=== PATIENT | female | born 1975 | race Caucasian/White ===

== ENCOUNTER 2021-07-10 15:33 | Emergency (ER) | payer BC, SELFPAY ==
[2021-07-10 15:53] VITALS: BP 141/107; PULSE 70; RESP 16; TEMP 37; O2SAT 99
--- NOTE | 2021-07-10 16:38 | ED.URI ---
HPI - URI/Sore Throat General Chief Complaint: Upper Respiratory Infection Stated Complaint: sinus infection Time Seen by Provider: 07/10/21 16:38 Source: patient Mode of arrival: ambulatory Limitations: no limitations History of Present Illness HPI Narrative: Mora Porter 36-year-old female with no PMH who comes to [facility] with complaints of sinus congestion and fever for the last 3 days. She has been taking Claritin D and using Mucinex with no relief Related Data Allergies Allergy/AdvReac Type Severity Reaction Status Date / Time morphine Allergy Unknown N & V Verified 04/02/14 13:57 mushrooms-swelling Allergy Unknown Uncoded 05/09/05 07:23 Review of Systems Review of Systems: CONSTITUTIONAL: Denies fever, chills, sweats. EYES: Denies visual changes, redness, discharge. ENT: Has rhinorrhea, has congestion, sore throat, otalgia. CARDIOVASCULAR: Denies chest pain, palpitations, edema. RESPIRATORY: Denies dyspnea, wheezing, has cough GASTROINTESTINAL: Denies abdominal pain, nausea, vomiting, diarrhea. GENITOURINARY: Denies dysuria, hematuria, abnormal discharge SKIN: Denies rash or itching. NEUROLOGIC: Denies numbness, or focal weakness. PSYCHIATRIC: Denies anxiety or depression. [facility] Past Medical History Medical History No acute medical problems Family History Family History (Updated 07/10/21 @ 16:39 by Val Huynh CNP) Other Diabetes mellitus Heart disease Hypertension Social History Social History (Updated 07/10/21 @ 16:40 by Val Huynh CNP) Smoking packs per day: 0.1 Smoking cigarettes per day: 2.0 Smoking status: Current every day smoker Alcohol intake: never Comments At time of signature, I agree with nursing past medical, surgical, social and family history. There is no relevant family history pertinent to the presenting complaint. Patient's blood pressure is elevated due to her current condition. Exam Narrative: GENERAL: This is a well-nourished, well-developed patient, in mild distress. HEAD: normocephalic, atraumatic. EYES: Sclera clear/white. Vision is grossly intact. EARS: External ears normal, auditory canals erythema and without drainage, TMs normal without perforation. Hearing grossly intact. NOSE: External nose normal with nasal discharge, nares with redness, has rhinorrhea. Tender across maxillary sinuses THROAT: Mucous membranes moist, posterior pharynx erythema NECK: Neck supple, non-tender CARDIOVASCULAR: Regular rate and rhythm without murmurs, gallops, or rubs. RESPIRATORY: Clear to auscultation. Breath sounds equal bilaterally. No wheezes, rales, or rhonchi. GASTROINTESTINAL: Abdomen soft, non-tender, SKIN: warm, intact with no suspicious lesions or rash, good texture and turgor. NEURO: awake, alert, and oriented to person, place and time. There were no obvious focal neurologic abnormalities. Steady gait EXTREMITIES: Normal range of motion. BACK: Nontender without deformity Course Course Emergency Course: [facility] complaining of fever and sinus symptoms for the last 3 days has gotten continually worse the last 3 days After discussion with patient about history and fever control started on Augmentin, prednisone, Tessalon Perles Vital Signs Vital signs: Vital Signs Temperature 98.6 F 07/10/21 15:53 Pulse Rate 70 07/10/21 15:53 Respiratory Rate 16 07/10/21 15:53 Blood Pressure 141/107 H 07/10/21 15:53 Pulse Oximetry 99 07/10/21 15:53 Temperature 98.6 F 07/10/21 15:53 Pulse Rate 70 07/10/21 15:53 Respiratory Rate 16 07/10/21 15:53 Blood Pressure 141/107 H 07/10/21 15:53 Pulse Oximetry 99 07/10/21 15:53 MDM - URI/Sore Throat Differential Diagnosis Differential diagnosis: Likely upper respiratory infection, otitis media, sinusitis, viral infection, bronchitis, pharyngitis and other Critical Care Time Critical Care Time Critical Car
== END 2021-07-10 16:50 | disposition home or self-care (01) ==
PROVIDERS: Emergency Provider Nurse Practitioner
DX: J01.10 Acute frontal sinusitis, unspecified (principal); F17.210 Nicotine dependence, cigarettes, uncomplicated
CPT/HCPCS: 99213; G0463

== ENCOUNTER 2021-12-21 12:49 | Emergency (ER) | payer BC, SELFPAY ==
[2021-12-21 12:57] VITALS: BP 128/76; PULSE 88; RESP 16; TEMP 37.1; O2SAT 98
[2021-12-21 13:00] VITALS: BP 128/76; PULSE 88; RESP 16; TEMP 37.1; O2SAT 98
--- NOTE | 2021-12-21 13:09 | ED.SKABFB ---
HPI - Skin/Abscess/Foreign Bdy General Chief complaint: Skin/Abscess/Foreign Body Stated complaint: Rash Time Seen by Provider: 12/21/21 13:09 Source: patient, RN notes reviewed and old records reviewed Mode of arrival: ambulatory Limitations: no limitations History of Present Illness HPI narrative: 46-year-old female presents to the [facility] with a rash under bilateral breasts for the last week to 10 days. Has tried foot cream, A&E ointment, diaper rash cream with no relief. Describes it as itching and burning. No open wounds. No cellulitic changes. Denies fevers. MD complaint: rash Related Data Allergies Allergy/AdvReac Type Severity Reaction Status Date / Time morphine Allergy Unknown N & V Verified 12/21/21 12:58 mushrooms-swelling Allergy Unknown Swelling Uncoded 12/21/21 12:58 Review of Systems Review of Systems: All systems reviewed & are unremarkable except as noted in HPI and below Constitutional: Constitutional: Reports no additional constitutional complaints, Denies chills, Denies fever(s), Denies headache(s) and Denies weakness Eyes: Eyes: Reports no additional eye complaints and Denies change in vision ENT: Reports system reviewed and no additional complaints, except as documented, Denies dysphagia, Denies dizziness, Denies headache(s), Denies nasal congestion and Denies sore throat Cardiovascular: Cardiovascular: Reports no additional cardiovascular complaints, Denies chest pain, Denies syncope and Denies dyspnea Respiratory: Respiratory: Reports no additional respiratory complaints, Denies chest congestion, Denies cough, Denies dyspnea and Denies wheezing Gastrointestinal: Gastrointestinal: Denies dysphagia Musculoskeletal: Musculoskeletal: Reports no additional musculoskeletal complaints and Denies numbness Integumentary/Breasts: Skin/Breast: Reports as per HPI and Reports rash (Under bilateral breasts) Neurologic: Reports system reviewed and no additional complaints, except as documented, Denies dizziness, Denies syncope, Denies headache(s), Denies focal weakness, Denies numbness and Denies weakness Psychiatric: Psychiatric: Reports no additional psychiatric complaints Allergic/Immunologic: Allergic/Immunologic: Reports no additional allergic/immunologic complaints and Denies wheezing PMFSH Past Medical History Medical History No acute medical problems Family History Family History Other Diabetes mellitus Heart disease Hypertension Social History Social History Smoking packs per day: 0.1 Smoking cigarettes per day: 2.0 Smoking status: Current every day smoker Alcohol intake: never Comments At the time of my signature, I reviewed and agree with the nursing past medical, surgical, social, and family history. There is no relevant family history pertinent to the patient complaint. Exam Const: General: healthy appearing, no acute distress and alert Nutritional Appearance: well nourished and obese Orientation/consciousness: patient oriented x3 Limitations: no limitations HENMT: Head: normal to inspection Ears: external ears normal Eyes: Pupils: Equal, round and reactive pupils present Neck: Neck: normal visual inspection, no lymphadenopathy and no meningeal signs Chest: Chest palpation & inspection: normal inspection of the chest Resp: Effort & Inspection: normal respiratory effort Auscultation: clear to auscultation bilaterally Cardio: Rate: regular rate Rhythm: regular rhythm Back/Spine/Pelvis: Back: no CVA tenderness Skin: General skin exam: normal color Rashes: rashes noted (Under bilateral, red, excoriated) Neuro: General: patient oriented x3, moves all extremities, no meningeal signs and no focal motor deficits Cranial nerves: Yes Equal, round and reactive pupils present Speech: normal speech Gait ex
== END 2021-12-21 13:16 | disposition home or self-care (01) ==
PROVIDERS: Emergency Provider Nurse Practitioner
DX: B37.2 Candidiasis of skin and nail (principal); F17.210 Nicotine dependence, cigarettes, uncomplicated
CPT/HCPCS: 99213; G0463

== ENCOUNTER 2022-11-06 16:26 | Emergency (ER) | payer BC, SELFPAY ==
[2022-11-06 16:40] VITALS: BP 144/84; PULSE 87; RESP 14; TEMP 36.4; O2SAT 99
--- NOTE | 2022-11-06 17:08 | ED.URI ---
HPI - URI/Sore Throat General Chief Complaint: Upper Respiratory Infection Stated Complaint: Sinus Time Seen by Provider: 11/06/22 17:08 Source: patient and RN notes reviewed Mode of arrival: ambulatory Limitations: no limitations History of Present Illness HPI Narrative: 47 y/o female presented for c/o sinus headache, cough, sore throat, for 4 days, endorses fever 102 today. Taking sudafed and tylenol for symptoms. 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 Denies shortness of breath, wheezing, nausea, vomiting, diarrhea. Currently quitting smoking, down to 3 cigarettes per day. MD elicited complaint: cough Related Data Allergies Allergy/AdvReac Type Severity Reaction Status Date / Time morphine Allergy Unknown N & V Verified 11/06/22 16:35 mushrooms-swelling Allergy Unknown Swelling Uncoded 11/06/22 16:35 Review of Systems Review of Systems: CONSTITUTIONAL: Endorses malaise, chills, sweats, fever EYES: Denies visual changes, redness, or discharge ENT: Reports rhinorrhea, congestion, sinus pain, otalgia, sore throat CARDIOVASCULAR: Denies chest pain, palpitations, edema RESPIRATORY: Reports cough, post nasal drainage. Denies dyspnea GASTROINTESTINAL: Denies abdominal pain, nausea, vomiting, diarrhea SKIN: Denies rash or itching MUSCULOSKELETAL: Denies myalgia NEUROLOGIC: Endorses headache PMFSH Past Medical History Medical History (Updated 11/06/22 @ 17:16 by Elida Le APRN) No acute medical problems No pertinent past medical history Family History Family History Other Diabetes mellitus Heart disease Hypertension Social History Social History Smoking packs per day: 0.1 Smoking cigarettes per day: 2.0 Smoking status: Current every day smoker Alcohol intake: never Exam Narrative: GENERAL: Ill-appearing, nontoxic EYES: PERRLA, conjunctivae clear ENT: Mucous membranes moist. TMs pearly alston with dull light reflex bilaterally; no tragal tenderness. Oropharynx erythematous without lesions or exudate, no drooling, no hoarseness, no trismus, uvula midline. NECK: Supple. No lymphadenopathy CHEST: Clear to auscultation, breath sounds equal. No wheezing, rhonchi, rales, or stridor. No respiratory distress, speaks in full sentences. HEART: Regular rate and rhythm. No murmur heard. SKIN: Warm, dry, no rash. NEURO: Alert and oriented x3. PSYCH: Normal mood and affect Course Course Emergency Course: Patient is aware of diagnosis, understands and agrees to treatment plan. Anticipatory guidance given. Patient agrees to follow-up as directed and is aware of reasons to seek care at the emergency department. Portions of this record may have been created with voice recognition software Level of Care: Express Care Visit Vital Signs Vital signs: reviewed MDM - URI/Sore Throat MDM Narrative Medical decision making narrative: Results of test reviewed with patient. Will send prescription for an antibiotic to cover for sinus infection. Have a PCP. Advised supportive measures and signs/symptoms to go to the ER. Pt is appropriate for outpt treatment and f/u. Differential Diagnosis Differential diagnosis: Likely upper respiratory infection, sinusitis and viral infection Discharge Plan Discharge Clinical Impression: Upper respiratory infection Qualifiers: URI type: unspecified URI Qualified Code(s): J06.9 - Acute upper respiratory infection, unspecified Patient Disposition: Home, Self-Care Condition: Stable Instructions: Antibiotic Form, Rhinosinusitis (ED) Additional Instructions: Rapid strep swab was negative today You will be notified in a few days if the culture comes back positive for strep, and appropriate antibiotics will be called in at that time. if symptoms are due to a viral illness, it is not treated with antibiotics. Viral symptoms can be present
== END 2022-11-06 17:17 | disposition home or self-care (01) ==
PROVIDERS: Emergency Provider Nurse Practitioner Family
DX: J06.9 Acute upper respiratory infection, unspecified (principal); Z20.822 Contact with and (suspected) exposure to COVID-19; F17.210 Nicotine dependence, cigarettes, uncomplicated
CPT/HCPCS: 87081; 87426; 87804; 87880; 99213; C9803; G0463

== ENCOUNTER 2023-01-18 06:46 | Emergency (ER) | payer OTHER, BC, SELFPAY ==
--- NOTE | ~2023-01-18 | XR_ITS ---
EXAMINATION: XR shoulder RT min 2V DATE: 01/18/2023 08:27 INDICATION: Right shoulder pain. Fall. TECHNIQUE: 4 views of right shoulder were obtained. COMPARISON: None. FINDINGS: Bone alignment is normal. No fracture. Joint spaces are normal. IMPRESSION: 1. Normal right shoulder. Reviewed, dictated and finalized at location A. IMPRESSION: 1. Normal right shoulder.
[2023-01-18 06:49] VITALS: BP 142/87; PULSE 75; RESP 18; TEMP 36.3; O2SAT 100
--- NOTE | 2023-01-18 07:25 | ED.UPPEXIN ---
HPI - Extremity Injury (Upper) General Chief Complaint: Extremity Injury, Upper Stated Complaint: right shoulder injury Time Seen by Provider: 01/18/23 07:22 Source: patient Mode of arrival: ambulatory Limitations: no limitations History of Present Illness HPI narrative: 47 years old white female morbidly obese drove herself to the emergency room because of pain at the right shoulder Status post slipping and grabbing a shelf to avoid falling at work yesterday. She denies other injuries, she denies falling on the ground. Related Data Allergies Allergy/AdvReac Type Severity Reaction Status Date / Time morphine Allergy Unknown N & V Verified 01/18/23 06:47 mushrooms-swelling Allergy Unknown Swelling Uncoded 01/18/23 06:47 Review of Systems Review of Systems: All systems reviewed & are unremarkable except as noted in HPI and below PMFSH Past Medical History Medical History No acute medical problems No pertinent past medical history Family History Family History Other Diabetes mellitus Heart disease Hypertension Social History Social History Smoking packs per day: 0.1 Smoking cigarettes per day: 2.0 Smoking status: Current every day smoker Alcohol intake: never Exam Narrative: General appearance: Well-developed, well-nourished Skin: Normal color Head: Normocephalic, nontraumatic Eyes: Clear conjunctiva ENT: Oropharynx normal, ears normal, nose normal Neck: Supple, nontender Chest and respiratory: Airway patent, no respiratory distress, no accessory muscle use Heart: Regular rate/rhythm Abdomen: Soft, nontender, no organomegaly, quiet bowel sounds Vascular: Normal peripheral pulses, normal capillary refill. Musculoskeletal: Diffuse tenderness to right shoulder, no bruises, no swelling, no deformity slight limited range of motion Neurologic: Alert and oriented ?3, [employer] is normal as tested, no gross motor deficit Course Reevaluation(s) Reevaluation #1: Slight improvement after Tylenol and ibuprofen. Date: 01/18/23 Time: 07:40 Vital Signs Vital signs: Vital Signs Temperature 36.3 C L 01/18/23 06:49 Pulse Rate 75 01/18/23 06:49 Respiratory Rate 18 01/18/23 06:49 Blood Pressure 142/87 H 01/18/23 06:49 Pulse Oximetry 100 01/18/23 06:49 Oxygen Delivery Room Air 01/18/23 06:49 Temperature 36.3 C L 01/18/23 06:49 Pulse Rate 75 01/18/23 06:49 Respiratory Rate 18 01/18/23 06:49 Blood Pressure 142/87 H 01/18/23 06:49 Pulse Oximetry 100 01/18/23 06:49 Oxygen Delivery Room Air 01/18/23 06:49 MDM - Extremity Injury (Upper) MDM Narrative Medical decision making narrative: Muscular sprain/strain, rotator cuff injury is my concern. X-ray of the right shoulder showed no acute abnormalities. Patient to be discharged on anti-inflammatory medication, follow-up with family physician/orthopedic in 1 week if there is no improvement for possible MRI. Differential Diagnosis Differential diagnosis: Likely other (Right shoulder sprain/strain, rotator cuff injury) Imaging Data My impression: Impressions Shoulder X-Ray 01/18/23 08:30 IMPRESSION: 1. Normal right shoulder. Radiologist's impression: X-ray right shoulder showed no acute abnormalities Critical Care Time Critical Care Time Critical Care Time: No Discharge Plan Discharge Clinical Impression: Shoulder sprain Qualifiers: Encounter type: initial encounter Shoulder sprain type: unspecified sprain Laterality: right Qualified Code(s): S43.401A - Unspe
--- NOTE | 2023-01-18 07:58 | PC.NURSE ---
Patient off unit to radiology.
[2023-01-18] MEDS: IBUPROFEN 600 MG TABLET PO (08:00)
[2023-01-18] MEDS: ACETAMINOPHEN 325 MG TABLET 650 MG PO (08:00)
== END 2023-01-18 09:03 | disposition home or self-care (01) ==
PROVIDERS: Emergency Provider Emergency Medicine
DX: S43.401A Unspecified sprain of right shoulder joint, initial encounter (principal); W18.40XA Slipping, tripping and stumbling without falling, unspecified, initial encounter; F17.210 Nicotine dependence, cigarettes, uncomplicated
CPT/HCPCS: 73030; 99283; A9270

== ENCOUNTER 2023-11-03 10:29 | Emergency (ER) | payer OTHER, BC, SELFPAY ==
[2023-11-03 10:40] VITALS: BP 110/55; PULSE 73; RESP 16; TEMP 36.1; O2SAT 98
--- NOTE | 2023-11-03 11:04 | ED.FALL ---
HPI - Fall General Chief Complaint: Fall Stated Complaint: FALL Time Seen by Provider: 11/03/23 11:04 Source: patient Mode of arrival: ambulatory Limitations: no limitations History of Present Illness HPI Narrative: 48-year-old female presenting for complaint of left rib pain after she fell at work today. States she was seated, leaning over, when the chair slipped and she fell onto a drawer. Denies hemoptysis, sob, wheezing. Has not taken anything for pain. Related Data Home Medications Medication Instructions Recorded Confirmed metformin 500 mg tablet,extended 500 mg PO DAILY 11/03/23 11/03/23 release 24 hr rosuvastatin 5 mg tablet 5 mg PO DAILY 11/03/23 11/03/23 Allergies Allergy/AdvReac Type Severity Reaction Status Date / Time morphine Allergy Unknown N & V Verified 11/03/23 10:39 mushrooms-swelling Allergy Unknown Swelling Uncoded 11/03/23 10:39 Review of Systems Review of Systems: CONSTITUTIONAL: Denies body aches, fever, chills, or sweats. EYES: Denies visual changes, redness, or discharge. ENT: Denies rhinorrhea, congestion, sore throat, or otalgia. CARDIOVASCULAR: Denies chest pain, palpitations, or edema. RESPIRATORY: Denies cough or dyspnea. GASTROINTESTINAL: Denies abdominal pain, nausea, vomiting, or diarrhea. SKIN: Denies rash, itching, or wounds. MUSCULOSKELETAL: reports left rib pain Denies back pain, joint pain, or myalgia. NEUROLOGIC: Denies headache, numbness, tingling, or weakness. All systems reviewed & are unremarkable except as noted in HPI and below PMFSH Past Medical History Medical History No acute medical problems No pertinent past medical history Family History Family History Other Diabetes mellitus Heart disease Hypertension Social History Social History Smoking packs per day: 0.1 Smoking cigarettes per day: 2.0 Smoking status: Current every day smoker Alcohol intake: never Comments At time of signature, I have reviewed and agree with nursing past medical, surgical, social and family history unless otherwise noted. Please see nursing chart for further information. There is no relevant family history pertinent to the presenting complaint Exam Narrative: GENERAL: Well-appearing EYES: EOMI. No redness or drainage. Conjunctivae normal. ENT: Mucous membranes pink and moist. CHEST: No respiratory distress. Clear to auscultation. HEART: Regular rate and rhythm. No murmur appreciated. Normal peripheral pulses. ABDOMEN: Soft, nontender, nondistended, normal active bowel sounds. MUSCULOSKELETAL: left lateral ribs with superficial abrasion approx 2cm diameter and surrounding erythema; tender with palpation to rib7-9 area. EXTREMITIES: Normal range of motion. No edema. SKIN: Warm, dry, no rash. Capillary refill normal. Normal skin turgor. NEURO: No focal deficits. Alert and oriented x3. Gait steady. PSYCH: Normal affect. Course Course Emergency Course: Patient is aware of diagnosis, understands and agrees to treatment plan. Anticipatory guidance given. Patient agrees to follow-up as directed and is aware of reasons to seek care at the emergency department. Portions of this record may have been created with voice recognition software Level of Care: Express Care Visit Vital Signs Vital signs: Vital Signs Temperature 96.9 F L 11/03/23 10:40 Pulse Rate 73 11/03/23 10:40 Respiratory Rate 16 11/03/23 10:40 Blood Pressure 110/55 L 11/03/23 10:40 Pulse Oximetry 98 11/03/23 10:40 Oxygen Delivery Room Air 11/03/23 10:40 Temperature 96.9 F L 11/03/23 10:40 Pulse Rate 73 11/03/23 10:40 Respiratory Rate 16 11/03/23 10:40 Blood Pressure 110/55 L 11/03/23 10:40 Pulse Oximetry 98 11/03/23 10:40 Oxygen Delivery Room Air 11/03/23 10:40 MDM - Fall
== END 2023-11-03 11:14 | disposition home or self-care (01) ==
PROVIDERS: Emergency Provider Nurse Practitioner Family
DX: S20.219A Contusion of unspecified front wall of thorax, initial encounter (principal); F17.210 Nicotine dependence, cigarettes, uncomplicated; W07.XXXA Fall from chair, initial encounter
CPT/HCPCS: 99213; G0463

== ENCOUNTER 2024-09-16 18:08 | Emergency (ER) | payer BC, SELFPAY ==
--- NOTE | ~2024-09-16 | XR_ITS ---
HISTORY: R knee pain COMPARISON: None TECHNIQUE: 3 views of the right knee were performed. FINDINGS: No acute or subacute fracture, erosion, lytic or sclerotic lesion. Medial tibiofemoral joint space narrowing is identified. No suprapatellar joint effusion is identified. The infrapatellar joint space is clear. IMPRESSION: Degenerative disease, without acute fracture. Reviewed, dictated and finalized at location A. H MOLDER
[2024-09-16 18:11] VITALS: BP 181/94; PULSE 80; RESP 17; TEMP 36.7; O2SAT 100
--- OUTSIDE RECORDS SUMMARY | 2024-09-16 18:11 | XMS_ITS | Clinical Summary ---
Author Organization [facility] Address [address] [place] [id number] Care Team Providers Care Convertible Sofa Bedspring Tester Name Role Phone Lisbet Finch NP Primary Care Provider [phone] Allergies Active Allergy Reactions Criticality Noted Date Comments Morphine Nausea & Vomiting,Anaphylaxis High 2013 Anaphylaxis Medications ondansetron ODT (ZOFRAN-ODT) 4 mg disintegrating tabletIndications: Other migraine without status migrainosus, not intractable Take 1 tablet (4 mg total) by mouth every 8 (eight) hours as needed for nausea or vomiting 20 tablet 1 3 Active metFORMIN XR (GLUCOPHAGE XR) 500 mg 24 hr tabletIndications: Controlled type 2 diabetes mellitus without complication, without long-term current use of insulin ([facility]) ([facility]) TAKE 1 TABLET(500 MG) BY MOUTH DAILY WITH BREAKFAST 90 tablet 4 Active rosuvastatin (CRESTOR) 5 mg tabletIndications: Mixed hyperlipidemia TAKE 1 TABLET(5 MG) BY MOUTH DAILY 90 tablet 1 4 Active ondansetron ODT (ZOFRAN-ODT) 4 mg disintegrating tabletIndications: Nausea and vomiting in adult Take 1 tablet (4 mg total) by mouth every 8 (eight) hours as needed for nausea or vomiting 20 tablet 1 4 Active Active Problems Problem Noted Date Diagnosed Date Nausea and vomiting in adult 12/18/2023 Migraine 06/17/2023 Right hip pain 06/17/2023 Smoker 03/18/2023 Mixed hyperlipidemia 03/18/2023 Type 2 diabetes mellitus with hyperlipidemia Overview (03/18/2023): start metformin extended release 1 time daily as directed. Have lab work completed prior to next visit. Monitor carbohydrates and sugars Morbid obesity with BMI of 45.0-49.9, adult 02/21 Assessment & Plan (12/18/2023 8:19 AM CDT): Discussed the patient's BMI. The BMI is above average. BMI management plan is completed. BMI Follow-up includes: nutrition counseling, exercise counseling and education provided. Assessment & Plan (06/17/2023 9:10 AM CDT): Discussed the patients BMI: The BMI is above average BMI management is complete. BMI follow-up includes: Nutrition Counseling and education provided Assessment & Plan (03/18/2023 10:13 AM CDT): Discussed the patients BMI: The BMI is above average BMI management is complete. BMI follow-up includes: Nutrition Counseling and education provided Assessment & Plan (03/06/2023 10:13 AM CDT): Discussed the patient's BMI. The BMI is above average. BMI management plan is completed. BMI Follow-up includes: nutrition counseling, exercise counseling and education provided. Encounter for screening mamm ogram for malignant neoplasm of breast 03/06/2023 Immunizations Name Administration Dates Next Due Influenza, Quadrivalent, Spl it, Preservative Free, Intramuscular 06/17/2023 Influenza, Unspecified 03/18/2023(Deferr ed: Patient Refused),03/06/2023(Deferred: Patient Refused),09/24/2021(Deferred: Patient Refused),09/24/2021(Deferred: Patient Refused) Tdap 10/08/2017 Surgical History Surgery Date Site/Laterality Comments SECTION CHOLECYSTECTOMY Medical History Medical History Date Comments Diabetes mellitus (HCC) Family History Medical History Relation Name Comments Heart attack Brother Heart attack Father Breast cancer Mother Pneumonia Mother Breast cancer Mother's Sister Relation Name Status Comments Brother Father Mother Mother's Sister Social History Tobacco Use Types Packs/Day Years Used Date Smoking Tobacco: Every Day Cigarettes 0.2 15 Tobacco Cessation:Ready to Q uit: Not Asked; Counseling Given: Not Answered PHQ-2 Answer Date Recorded PHQ-2 Total Score (If total score is 3 or more points, staff should administer the PHQ-9) 1 12/18/2023 Comments No Sex and Gender Information Value Date Recorded Sex Assigned at Not on file Legal Sex Female 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[employer] Gender Identity Not on file Sexual Orientation Not on file Obstetrics History Para Term AB IAB SAB Ectopic Multiple Livin g Live Births 3 2 2 Date Outcome GA Total Labor Labor/2nd/3rd Weight Sex Type Anes PTL Radha A1 A5 Name Clin Term Term Last Filed Vital Signs Vital Sign Reading Time Taken Comments Blood Pressure 112/74 06/17/2023 9:06 AM CDT Pulse 95 12/18/2023 8:15 AM CDT Temperature 36.9 ??C (98.5 ??F) 12/18/2023 8:15 AM CD T Respiratory Rate 19 05/07/2022 8:26 AM CDT Oxygen Saturation 97% 12/18/2023 8:15 AM CDT Inhaled Oxygen Concentration - - Weight 137.4 kg (303 lb) 12/18/2023 8:15 AM CDT Height 170.2 cm (5' 7 ) 12/18/2023 8:15 AM CDT Body Mass Index 47.46 12/18/2023 8:15 AM CDT Plan of Treatment Health Maintenance Due Date Last Done Comments Albumin Creatinine Ratio, Urine 1977 Cervical Cancer Screening 1977 Hepatitis C Screening 1977 Dilated Eye Exam 1977 Foot Exam 1977 Pneumococcal vaccine <65 (1 of 2 - PCV) 1983 Hepatitis B Screening 1995 Hemoglobin A1C 12/19/2023 06/19/2023, 05/25, 03/12/2023 Regular Well Visit/Exam 18-64 03/06/2024 03/06/2023 Breast Cancer Screening-Mammogram 04/03/2024 023 Covid-19 Vaccine (2023-2 5 season) 2024 02/20/2021, 01/17/2021 Influenza Vaccine (#1) 2024 06/17/2023 Lipid Panel 06/19/2024 06/19/2023, 07/2 , 10/30/2014, Additional history exists eGFR 06/19/2024 06/19/2023, 03/12/2023 Depression Screening 12/17/2024 12/18/2023, 06/17/2023, 03/18/2023, Additional history exists Colon Cancer Screening-DNA Stool 03/13/2026 03/13/20 23 DTaP/Tdap/Td Vaccine (2 - Td or Tdap) 10/08/2027 10/08/2017 Procedures Procedure Name Priority Date/Time Associated Diagnosis Comments COMPREHENSIVE METABOLIC PANEL Routine 06/19/2023 3:37 PM CDT Controlled type 2 diabetes mellitus without complication, without long-term current use of insulin (CMS/HCC) (HCC) HEMOGLOBIN A1C Routine 06/19/2023 3:37 PM CDT Controlled type 2 diabetes mellitus without complication, without long-term current use of insulin (CMS/HCC) (HCC) LIPID PANEL Routine 06/19/2023 3:37 PM CDT Mixed hyperlipidemia SCREENING MAMMOGRAM BILATERAL W ADAM Schedule Routine, Read Routine (OP Routine) 04/03/2023 3:49 PM CDT Encounter for screening mammogram for malignant neoplasm of breast STOOL DNA ? COLOGUARD Routine 03/13/2023 6:02 PM CDT Screening for colon cancer from Last 3 Months or Most Recently Relevant to Health Maintenance Results * Hemoglobin A1c (06/19/2023 3:37 PM CDT) Hgb A1C 5.6 <5.7 % of total Hgb [facility] Comment: For the purpose of screening for the presence of diabetes: <5.7% ? Consistent with the absence of diabetes 5.7-6.4% ?Consistent with increased risk for diabetes ?(prediabetes) > or =6.5% ??Consistent with diabetes This assay result is consistent with a decreased risk of diabetes. Currently, no consensus exists regarding use of hemoglobin A1c for diagnosis of diabetes in children. According to [place] [employer] (ADA) guidelines, hemoglobin A1c <7.0% represents optimal control in non- diabetic patients. Different metrics may apply to specific patient populations. Standards of Medical Care in Diabetes(ADA). ?? Blood 06/19/2023 3:37 PM CDT 06/19/2023 3:39 PM CDT Narrative [facility] - 06/20/2023 2:28 AM CDT FASTING:YES FASTING: YES us Lisbet Finch NP LAB BLOOD ORDERABLES Final Re sult [facility] [address] [place] [address] * (ABNORMAL) Lipid panel (06/19/2023 3:37 PM CDT) [facility] Cholesterol 136 <200 mg/dL [facility] HDL 37(L) > OR = 50 mg/dL [facility] Triglycerides 115 <150 mg/dL [facility] LDL 79 mg/dL (calc) [facility] Comment: Reference range: <100 Desirable range <100 mg/dL for primary prevention; ?? <70 mg/dL for patients with CHD or diabetic patients with > or = 2 CHD risk factors. LDL-C is now calculated using the Jonas-Cathleen calculation, which is a validated novel method providing better accuracy than the Friedewald equation in the estimation of LDL-C. Jonas JAIME et al. KO. 2013;310(19): 4702-7810 (http://education.FedBid/faq/KJG797) Chol/HDL ratio 3.7 <5.0 (calc) [facility] Non-HDL, (LDL+VLDL) 99 <130 mg/dL (calc) [facility] Comment: For patients with diabetes plus 1 major ASCVD risk factor, treating to a non-HDL-C goal of <100 mg/dL (LDL-C of <70 mg/dL) is considered a therapeutic option. Blood 06/19/2023 3:37 PM CDT 06/19/2023 3:39 PM CDT Narrative [facility] - 06/20/2023 2:28 AM CDT FASTING:YES FASTING: YES Lisbet Finch SPECIFICATION WRITER LAB BLOOD ORDERABLES Final Re sult [facility] [address] [place] [address] * (ABNORMAL) Comprehensive metabolic panel (06/19/2023 3:37 PM CDT) [facility] Glucose 124(H) 65 - 99 mg/dL [facility] Comment: ? Fasting reference interval For someone without known diabetes, a glucose value between 100 and 125 mg/dL is consistent with prediabetes and should be confirmed with a follow-up test. BUN 10 7 - 25 mg/dL [facility] Creatinine 0.87 0.50 - 0.99 mg/dL [facility] [place] [facility] eGFR 83 > OR = 60 mL/min/1.7 3m2 [facility] BUN/creat ratio SEE NOTE: 6 - 22 (calc) [facility] Comment: ?? Not Reported: BUN and Creatinine are within ?? reference range. ? Sodium 139 135 - 146 mmol/L [facility] Potassium, pl 3.8 3.5 - 5.3 mmol/L [facility] Chloride 107 98 - 110 mmol/L [facility] CO2 25 20 - 32 mmol/L [facility] Calcium 9.1 8.6 - 10.2 mg/dL [facility] Protein, sr 6.6 6.1 - 8.1 g/dL [facility] Albumin 4.0 3.6 - 5.1 g/dL [facility] GLOBULIN 2.6 1.9 - 3.7 g/dL (calc) [facility] Alb/glob ratio 1.5 1.0 - 2.5 (calc) [facility] Bilirubin, total 0.5 0.2 - 1.2 mg/dL [facility] [place] Alk phos 55 31 - 125 U/L [facility] AST 15 10 - 35 U/L [facility] ALT (SGPT) 20 6 - 29 U/L [facility] Blood 06/19/2023 3:37 PM CDT 06/19/2023 3:39 PM CDT Narrative [facility] - 06/20/2023 2:28 AM CDT FASTING:YES FASTING: YES Lisbet Finch NP LAB BLOOD ORDERABLES Final Re sult [facility] [address] [place] [address] * Screening Mammogram Bilateral W Adam (04/03/2023 3:49 PM CDT) Anatomical Region Laterality Modality Breast Bilateral Mammography Impressions 04/03/2023 4:21 PM CDT BI-RADS?? ATLAS category (overall): 1 - Negative There is no mammographic evidence of malignancy. A 1 year screening mammogram is recommended. The patient has been or will be contacted. We recommend annual screening mammography for women at average risk of breast cancer beginning at age 40, based on guidelines of the [place] [employer] (ACR Practice Parameter for the Performance of Screening and Diagnostic Mammography) and [place] [employer]. For women with and elevated risk of breast cancer, please refer to the ACR Practice Parameter for specific screening recommendations. The patient will be entered into a reminder system with a target due date of 1 year for her next screening exam. Narrative 04/03/2023 4:21 PM CDT Screening Mammogram Bilateral W Adam: 04/03/23 The study was acquired using full field digital technology and interpreted from soft copy. 2D digital mammographic views, as well as 3D digital tomosynthesis were performed in the CC and MLO projections. CLINICAL: ??Encounter for screening mammogram for malignant neoplasm of breast (schedule and complete mammogram as you are due). ??No relevant medical history has been documented for this patient. ??History of breast cancer in Mother, Mother's Sister. COMPARISON: ??Baseline Screening Mammography. No prior mammography is available for comparison. BREAST TISSUE: The breasts are almost entirely fatty. FINDINGS: No suspicious masses, suspicious calcifications, or other suspicious findings are seen within either breast. us Lisbet Finch SPECIFICATION WRITER IMG MAMMO PROCEDURES Final Re sult * Stool DNA - Cologuard (03/13/2023 6:02 PM CDT) Stool DNA - Cologuard Negative Negative [facility] (CLIA #:[id number]) Comment: NEGATIVE TEST RESULT. A negative Cologuard result indicates a low likelihood that a colorectal cancer (CRC) or advanced adenoma (adenomatous polyps with more advanced pre-malignant features) ??is present. The chance that a person with a negative Cologuard test has a colorectal cancer is less than 1 in 1500 (negative predictive value >99.9%) or has an ??advanced adenoma is less than ??5.3% (negative predictive value 94.7%). These data are based on a prospective cross-sectional study of 10,000 individuals at average risk for colorectal cancer who were screened with both Cologuard and colonoscopy. (Aditi Jara et al, N Engl J Med 2014;370(14):1286- 1297) The normal value (reference range) for this assay is negative. COLOGUARD RE-SCREENING RECOMMENDATION: Periodic colorectal cancer screening is an important part of preventive healthcare for asymptomatic individuals at average risk for colorectal cancer. ??Following a negative Cologuard result, the [place] [employer] and U.S. Multi-Society Task Force screening guidelines recommend a Cologuard re-screening interval of 3 years. References: [place] [employer] Guideline for Colorectal Cancer Screening: https://www.cancer.org/cancer/oxnig-awgixb-ytmuvu/xkamhvcyu-cdtywyyqy-mqyyjyc/ac s-rec ommendations.html.; Odilon DK, Rich CR, Arnold GiraldoK, Colorectal Cancer Screening: Recommendations for Physicians and Patients from the U.S. Multi-Society Task Force on Colorectal Cancer Screening , Am J Gastroenterology 2017; 112:3113-4003. TEST DESCRIPTION: Composite algorithmic analysis of stool DNA-biomarkers with hemoglobin immunoassay. ?? Quantitative values of individual biomarkers are not reportable and are not associated with individual biomarker result reference ranges. Cologuard is intended for colorectal cancer screening of adults of either sex, 45 years or older, who are at average-risk for colorectal cancer (CRC). Cologuard has been approved for use by the U.S. FDA. The performance of Cologuard was established in a cross sectional study of average-risk adults aged 50-84. Cologuard performance in patients ages 45 to 49 years was estimated by sub-group analysis of near-age groups. Colonoscopies performed for a positive result may find as the most clinically significant lesion: colorectal cancer [4.0%], advanced adenoma (including sessile serrated polyps greater than or equal to 1cm diameter) [20%] or non- advanced adenoma [31%]; or no colorectal neoplasia [45%]. These estimates are derived from a prospective cross-sectional screening study of 10,000 individuals at average risk for colorectal cancer who were screened with both Cologuard and colonoscopy. (Aditi Marin al, N Engl J Med 2014;370(14):9968-7691.) Cologuard may produce a false negative or false positive result (no colorectal cancer or precancerous polyp present at colonoscopy follow up). A negative Cologuard test result does not guarantee the absence of CRC or advanced adenoma (pre-cancer). The current Cologuard screening interval is every 3 years. ([place] [employer] and U.S. Multi-Society Task Force). Cologuard performance data in a 10,000 patient pivotal study using colonoscopy as the reference method can be accessed at the following location: www.[employer].yetu/results. Additional description of the Cologuard test process, warnings and precautions can be found at www.cologuard.com. Stool 03/13/2023 6:02 PM CDT 03/16/2023 2:28 AM CDT us Lisbet Finch NP LAB BODY FLUIDS AND STOOLS OR DERABLES Final Result [facility] (CLIA #:[id number]) [place] [address] from Last 3 Months or Most Recently Relevant to Health Maintenance Insurance CIRQY ACCESS OOS CIRQY ACCESS OOS Care Teams Convertible Sofa Bedspring Tester Relationship Specialty Start Date End Date Lisbet Finch NP [address] [facility] [address] [place], [place] [id number] PCP - General Internal Medicine 03/06/23
--- NOTE | 2024-09-16 18:29 | ED_ITS ---
HPI - Extremity Injury (Lower) General Chief Complaint: Extremity Injury, Lower <Tiffanie CoraMary Brannon CUSTOMER SOLUTIONS COORDINATOR - Last Filed: 09/16/24 18:31> Stated Complaint: r knee pain <Tiffanie Brannon CUSTOMER SOLUTIONS COORDINATOR - Last Filed: 09/16/24 18:31> Time Seen by Provider: 09/16/24 18:20 <Tiffanie Brannon CUSTOMER SOLUTIONS COORDINATOR - Last Filed: 09/16/24 18:31> Focused HPI: Patient is a 49-year-old female presents to the ER with right knee pain. She reports her knee pain started approximately 4 weeks ago but is significantly worse today. Patient reports she feels swelling directly below her right kneecap. She reports she has been using Tylenol and Aleve at home for pain relief but is not helped. Patient reports she does not currently have a primary care provider. She reports she has a history of diabetes and hypertension but is not medicated. Patient denies any calf pain, recent signs/symptoms of illness, history of gout, injury to the area. GENERAL: Well-appearing, obese, and in no acute distress. HEAD: Normocephalic, atraumatic. CHEST: Clear to auscultation. ?No respiratory distress. HEART: Regular rate and rhythm.? NEURO: ?Alert and oriented x3. Patient screened in triage and initial orders placed.? ?Additional care and disposition to be based upon?diagnostic testing and treatment. <Tiffanie Brannon, CUSTOMER SOLUTIONS COORDINATOR - Last Filed: 09/16/24 18:31> Focused HPI: Patient is a 49-year-old female presents to the ER with right knee pain. She reports her knee pain started approximately 4 weeks ago but is significantly worse today. Patient reports she feels swelling directly below her right kneecap. She reports she has been using Tylenol and Aleve at home for pain relief but is not helped. Patient reports she does not currently have a primary care provider. She reports she has a history of diabetes and hypertension but is not medicated. Patient denies any calf pain, recent signs/symptoms of illness, history of gout, injury to the area. GENERAL: Well-appearing, obese, and in no acute distress. HEAD: Normocephalic, atraumatic. CHEST: Clear to auscultation. ?No respiratory distress. HEART: Regular rate and rhythm.? NEURO: ?Alert and oriented x3. Patient screened in triage and initial orders placed.? ?Additional care and disposition to be based upon?diagnostic testing and treatment. <Kathy Garces PA-C - Last Filed: 09/16/24 21:24> Source: patient <JENNIFER Izaguirre Last Filed: 09/16/24 21:24> Mode of arrival: ambulatory <JENNIFER Izaguirre Last Filed: 09/16/24 21:24> Limitations: no limitations <JENNIFER Izaguirre Last Filed: 09/16/24 21:24> History of Present Illness HPI Narrative: Agree with above HPI. Denies any known injury. Has been using a heating pad over her knee which does help some. <JENNIFER Izaguirre Last Filed: 09/16/24 21:24> Related Data Home Medications: Home Medications ?Medication ?Instructions ?Recorded ?Confirmed ?Last Taken ?Type metformin 500 mg tablet,extended 500 mg PO DAILY 11/03/23 11/03/23 Unknown History release 24 hr rosuvastatin 5 mg tablet 5 mg PO DAILY 11/03/23 11/03/23 Unknown History <Tiffanie Brannon APRN - Last Filed: 09/16/24 18:31> Allergies/Adverse Reactions: Allergies Allergy/AdvReac Type Severity Reaction Status Date / Time morphine Allergy Unknown N & V Verified 09/16/24 18:09 mushrooms-swelling Allergy Unknown Swelling Uncoded 09/16/24 18:09 <Tiffanie Brannon, CUSTOMER SOLUTIONS COORDINATOR - Last Filed: 09/16/24 18:31> Review of Systems Review of Systems: All systems reviewed & are unremarkable except as noted in HPI. <JENNIFER Izaguirre Last Filed: 09/16/24 21:24> All systems reviewed & are unremarkable except as noted in HPI and below <JENNIFER Izaguirre Last Filed: 09/16/24 21:24> PMFSH Past Medical History Medical History: Medical History No pertinent past medical history No acute medical problems <Tiffanie CoraMary Brannon, CUSTOMER SOLUTIONS COORDINATOR - Last Filed: 09/16/24 18:31> Family History Family History: Family History Other Diabetes mellitus Heart disease Hypertension <Tiffanie CoraMary Brannon, CUSTOMER SOLUTIONS COORDINATOR - Last Filed: 09/16/24 18:31> Social History Social History: Social History Smoking packs per day: 0.1 Smoking cigarettes per day: 2.0 Smoking status: Current every day smoker Alcohol intake: never <Tiffanie Brannon, CUSTOMER SOLUTIONS COORDINATOR - Last Filed: 09/16/24 18:31> Exam Narrative: GENERAL: Well appearing, well-nourished, non-toxic, in no acute distress. HEAD: Normocephalic, atraumatic. RESPIRATORY: Airway patent, respirations nonlabored. CARDIOVASCULAR: Regular rate and rhythm without murmurs, rubs, or gallops. Pedal pulses intact. MUSCULOSKELETAL: Moves all extremities. No gross deformities. No significant limited range of motion of right knee. Tenderness to palpation along medial joint space of right knee. No significant swelling. Sensation intact. Normal temperature. No warmth or erythema. No wounds. SKIN: Warm, dry, normal color. NEURO: A&O X3. Speech clear. Cranial nerves II-XII grossly intact. Steady gait. No ataxic movements. PSYCHIATRIC: Appropriate mood and affect. Normal interaction. <Kathy Garces PA-C - Last Filed: 09/16/24 21:24> Course Vital Signs Vital signs: Vital Signs Temperature 98.0 F 09/16/24 18:11 Pulse Rate 80 09/16/24 18:11 Respiratory Rate 17 09/16/24 18:11 Blood Pressure 181/94 H 09/16/24 18:11 Pulse Oximetry 100 09/16/24 18:11 Oxygen Delivery Room Air 09/16/24 18:11 Temperature 98.0 F 09/16/24 18:11 Pulse Rate 80 09/16/24 18:11 Respiratory Rate 17 09/16/24 18:11 Blood Pressure 181/94 H 09/16/24 18:11 Pulse Oximetry 100 09/16/24 18:11 Oxygen Delivery Room Air 09/16/24 18:11 <Tiffanie Brannon APRN - Last Filed: 09/16/24 18:31> Vital Signs Temperature 98.0 F 09/16/24 18:11 Pulse Rate 80 09/16/24 18:11 Respiratory Rate 17 09/16/24 18:11 Blood Pressure 181/94 H 09/16/24 18:11 Pulse Oximetry 100 09/16/24 18:11 Oxygen Delivery Room Air 09/16/24 18:11 Temperature 98.0 F 09/16/24 18:11 Pulse Rate 80 09/16/24 18:11 Respiratory Rate 17 09/16/24 18:11 Blood Pressure 181/94 H 09/16/24 18:11 Pulse Oximetry 100 09/16/24 18:11 Oxygen Delivery Room Air 09/16/24 18:11 <Kathy Garces PA-C - Last Filed: 09/16/24 21:24> MDM - Extremity Injury (Lower) MDM Narrative Medical decision making narrative: Patient?s injury is consistent with musculoskeletal etiology. No signs of neurologic or vascular compromise on physical examination. Compartments are soft without signs of compartment syndrome. XR of right knee negative for acute abnormality. Does show degenerative disease. No joint effusion. Discussed imaging results with patient. Discussed likelihood of ligamentous injury. No evidence of septic joint on exam. No evidence or concern for DVT. No evidence of infection. Patient is felt to be stable for discharge home and further outpatient management and treatment. Discussed rice therapy, return precautions. Patient given Kirit bandage in the ED. will refer to orthopedics for further evaluation if needed. Will also refer to on-call primary care doctor as patient does not currently have a primary. Given return precautions. She agrees with plan. Discharged in stable condition. <Kathy Garces PA-C - Last Filed: 09/16/24 21:24> Medical Records Attestation: I reviewed the patient's medical records. <Kathy Garces PA-C - Last Filed: 09/16/24 21:24> Imaging Data Attestation: I personally reviewed and interpreted this imaging study as follows: <Kathy Garces PA-C - Last Filed: 09/16/24 21:24> Radiologist's impression: ITS Impressions Knee X-Ray 09/16/24 19:12 IMPRESSION: Degenerative disease, without acute fracture. <Kathy Garces PA-C - Last Filed: 09/16/24 21:24> Discharge Plan Discharge Clinical Impression: Strain of right knee Qualifiers: Encounter type: initial encounter Qualified Code(s): S86.911A - Strain of unspecified muscle(s) and tendon(s) at lower leg level, right leg, initial encounter <Tiffanie Brannon APRN - Last Filed: 09/16/24 18:31> Patient Disposition: Home, Self-Care <Tiffanie Brannon APRN - Last Filed: 09/16/24 18:31> Condition: Stable <Tiffanie Brannon APRN - Last Filed: 09/16/24 18:31> Instructions: Antibiotic Form, Knee Sprain (ED), Swollen Knee Joint (ED), P.R.I.C.E. Treatment (ED) <Tiffanie Brannon APRN - Last Filed: 09/16/24 18:31> Additional Instructions: Continue Tylenol and Ibuprofen as needed for pain. You may use ice/heat, Voltaren gel as needed to area of pain. Elevate leg when able, utilize KIRIT bandage for compression and support. Follow-up with your primary care doctor and/or orthopedics for further evaluation. Return to the ED if you experience worsening or severe pain, fall or injury, numbness, severe swelling into lower leg, or any other symptoms of concern. <Tiffanie Brannon APRN - Last Filed: 09/16/24 18:31> Patient Language: Icelandic <Tiffanie Brannon APRN - Last Filed: 09/16/24 18:31> Prescriptions: New diclofenac sodium [Voltaren Arthritis Pain] 1 % gel 2 g topical QID Qty: 100 0RF Rx Instructions: apply to single elbow, wrist or hand; for hand includes palm/fingers/back of hand No Action metformin 500 mg tablet extended release 24 hr 500 mg PO DAILY rosuvastatin 5 mg tablet 5 mg PO DAILY ibuprofen 800 mg tablet 800 mg PO TID PRN (Reason: pain) Qty: 15 0RF <Tiffanie Brannon APRN - Last Filed: 09/16/24 18:31> Follow-up/Referrals: Jose Eduardo Guerrero MD [Physician] - (ORTHOPEDICS) Levy Calvert MD [Physician] - (PRIMARY CARE) PHYSICIAN,AGRICULTURAL SERVICE TECHNICIAN [Primary Care Provider] - <Tiffanie Brannon APRN - Last Filed: 09/16/24 18:31> Time of Disposition: 19:56 <Tiffanie Brannon APRN - Last Filed: 09/16/24 18:31> 19:56 <Kathy Garces PA-C - Last Filed: 09/16/24 21:24>
[2024-09-16] MEDS: KETOROLAC (*BKC) 60 MG/2 ML VIAL IM (19:36)
--- OUTSIDE RECORDS SUMMARY | 2024-09-16 20:07 | XMS_ITS | Referral Summary ---
Author Organization [facility] Address [address] [place] [id number] Care Team Providers Care Environmental Services Lead Name Role Phone Lisbet Finch NP Primary Care Provider [phone] Allergies Active Allergy Reactions Criticality Noted Date [...] complication, without long-term current use of insulin ([facility]) ([facility]) TAKE 1 TABLET(500 MG) BY MOUTH DAILY [...] Refused),09/24/2021(Deferred: Patient Refused),09/24/2021(Deferred: Patient Refused) Tdap 10/08/2017 Social History Tobacco Use Types Packs/Day Years [...] on file 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 Gender Identity Not on file Sexual Orientation Not on file Last Filed Vital Signs Vital Sign Reading [...] 12/18/2023 8:15 AM CDT Plan of Treatment Not on file Procedures Procedure Name Priority Date/Time Associated Diagnosis Comments COMPREHENSIVE METABOLIC PANEL Routine 06/19/2023 3:37 PM CDT Controlled type 2 diabetes mellitus without complication, without long-term current use of insulin ([facility]) ([facility]) HEMOGLOBIN A1C Routine 06/19/2023 3:37 PM CDT Controlled type 2 diabetes mellitus without complication, without long-term current use of insulin ([facility]) ([facility]) LIPID PANEL Routine 06/19/2023 3:37 PM CDT [...] A1C 5.6 <5.7 % of total [facility] Comment: For the purpose of screening for the presence of diabetes: <5.7% ? Consistent with the absence of diabetes 5.7-6.4% ?Consistent with increased risk for diabetes ?(prediabetes) > or =6.5% ??Consistent with diabetes This assay result is consistent with a decreased risk of diabetes. Currently, no consensus exists regarding use of hemoglobin A1c for diagnosis of diabetes in children. According to [place] [employer] (ADA) guidelines, hemoglobin A1c <7.0% represents optimal control in non- diabetic patients. Different metrics may apply to specific patient populations. Standards of Medical Care in Diabetes(ADA). ?? Blood 06/19/2023 3:37 PM CDT 06/19/2023 3:39 PM CDT [facility] - 06/20/2023 2:28 AM CDT FASTING:YES FASTING: YES us Lisbet Finch RESTUARANT CREW WORKER LAB BLOOD ORDERABLES Final Re sult [facility] [address] [place] [address] * (ABNORMAL) Lipid panel (06/19/2023 3:37 PM CDT) [facility] Cholesterol 136 <200 mg/dL [facility] HDL 37(L) > OR = 50 mg/dL [facility] Triglycerides 115 <150 mg/dL [facility] LDL 79 mg/dL (calc) [facility] Comment: Reference range: <100 Desirable range <100 mg/dL for primary prevention; ?? <70 mg/dL for patients with CHD or diabetic patients with > or = 2 CHD risk factors. LDL-C is now calculated using the Jennifer calculation, which is a validated novel method providing better accuracy than the Friedewald equation in the estimation of LDL-C. Jonas JAIME et al. KO. 2013;310(19): 0589-8220 (http://education.[employer]/faq/VRN425) Chol/HDL ratio 3.7 <5.0 (calc) [facility] Non-HDL, (LDL+VLDL) 99 <130 mg/dL (calc) [facility] Comment: For patients with diabetes plus 1 major ASCVD risk factor, treating to a non-HDL-C goal of <100 mg/dL (LDL-C of <70 mg/dL) is considered a therapeutic option. Blood 06/19/2023 3:37 PM CDT 06/19/2023 3:39 PM CDT Narrative [facility] - 06/20/2023 2:28 AM CDT FASTING:YES FASTING: YES us Lisbet Finch RESTUARANT [employer] WORKER LAB BLOOD ORDERABLES Final Re sult [facility] [address] [place] [address] * (ABNORMAL) Comprehensive metabolic panel (06/19/2023 3:37 PM CDT) Pathologist [facility] Glucose 124(H) 65 - 99 mg/dL [facility] Comment: ? Fasting reference interval For someone without known diabetes, a glucose value between 100 and 125 mg/dL is consistent with prediabetes and should be confirmed with a follow-up test. BUN 10 7 - 25 mg/dL [employer] [facility] Creatinine 0.87 0.50 - 0.99 mg/dL [employer] [facility] eGFR 83 > OR = 60 mL/min/1.7 3m2 [employer] [facility] BUN/creat ratio SEE NOTE: (calc) [facility] Comment: ?? Not Reported: BUN and Creatinine are within ?? reference range. ? Sodium 139 135 - 146 mmol/L [employer] [facility] Potassium, pl 3.8 3.5 - 5.3 mmol/L [employer] [facility] Chloride 107 98 - 110 mmol/L [employer] [facility] CO2 25 20 - 32 mmol/L [employer] [facility] Calcium 9.1 8.6 - 10.2 mg/dL [employer] [facility] Protein, sr 6.6 6.1 - 8.1 g/dL [employer] [facility] Albumin 4.0 3.6 - 5.1 g/dL [employer] [facility] GLOBULIN 2.6 1.9 - 3.7 g/dL (calc) [facility] Alb/glob ratio 1.5 1.0 - 2.5 (calc) [facility] Bilirubin, total 0.5 0.2 - 1.2 mg/dL [facility] Alk phos 55 31 - 125 U/L [facility] AST 15 10 - 35 U/L [facility] ALT (SGPT) 20 6 - 29 U/L [facility] Blood 06/19/2023 3:37 PM CDT 06/19/2023 3:39 PM CDT Narrative [facility] - 06/20/2023 2:28 AM CDT FASTING:YES FASTING: YES us Lisbet Finch NP LAB BLOOD ORDERABLES Final Re sult [facility] [address] [place] [address] * Screening Mammogram Bilateral W Adam (04/03/2023 [...] age 40, based on guidelines of the [place] [employer] (ACR Practice Parameter for the Performance of Screening and Diagnostic Mammography) and [place] [employer]. For women [...] suspicious findings are seen within either breast. Lisbet Finch NP IMG MAMMO PROCEDURES Final Re sult * Stool DNA - Cologuard (03/13/2023 6:02 PM CDT) Stool DNA - Cologuard Negative Negative [employer] [facility] (CLIA #:[id number]) Comment: NEGATIVE TEST RESULT. A negative Cologuard [...] (Aditi Marin al, N Engl J Med 2014;370(14):1286- 1297) The normal value (reference range) for this assay is negative. COLOGUARD RE-SCREENING RECOMMENDATION: Periodic colorectal cancer screening is an important part of preventive healthcare for asymptomatic individuals at average risk for colorectal cancer. ??Following a negative Cologuard result, the [place] [employer] and U.S. Multi-Society Task Force screening guidelines recommend a Cologuard re-screening interval of 3 years. References: [place] [employer] Guideline for Colorectal Cancer Screening: https://www.cancer.org/cancer/vkvlz-imadal-cegnaa/gvtbnkwbt-qepltjtdt-ijixzds/ac s-rec ommendations.html.; Odilon MATHEW, Rich CR, Arnold SAPP, Colorectal Cancer Screening: Recommendations for Physicians and Patients from the U.S. Multi-Society Task Force on Colorectal Cancer Screening , Am J Gastroenterology 2017; 112:7645-2243. TEST DESCRIPTION: Composite algorithmic analysis of stool [...] screened with both Cologuard and colonoscopy. (Aditi Hills. et al, N Engl J Med 2014;370(14):4089-2386.) Cologuard may produce a false negative or false positive result (no colorectal cancer or precancerous polyp present at colonoscopy follow up). A negative Cologuard test result does not guarantee the absence of CRC or advanced adenoma (pre-cancer). The current Cologuard screening interval is every 3 years. ([place] [employer] and U.S. Multi-Society Task Force). Cologuard performance data in a 10,000 patient pivotal study using colonoscopy as the reference method can be accessed at the following location: www.[employer].com/results. Additional description of the Cologuard test process, warnings and precautions can be found at www.[employer]an Angel [employer].com. Stool 03/13/2023 6:02 PM CDT 03/16/2023 2:28 AM CDT Lisbet Finch NP LAB BODY FLUIDS AND STOOLS OR DERABLES Final Result [facility] (CLIA #:[id number]) [address] [place] [address] from Last 3 Months or Most Recently Relevant to Health Maintenance Insurance [employer] Care Teams Environmental Services Lead Relationship Specialty Start Date End Date Lisbet Finch NP [address] [place] [address] PCP - General Internal Medicine 03/06/23
--- OUTSIDE RECORDS SUMMARY | 2024-09-16 20:07 | XMS_ITS | Clinical Summary ---
Author Organization [facility] Address [address] [place] [id number] Care Team Providers Care Supervisor Instrument Maintenance Name Role Phone Lisbet Finch NP Primary Care Provider [phone] Allergies Active Allergy Reactions Criticality Noted Date [...] complication, without long-term current use of insulin ([facility]) (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 Consistent with the absence of diabetes 5.7-6.4% ?Consistent with increased risk for diabetes ?(prediabetes) > or =6.5% ??Consistent with diabetes This assay result is consistent with a decreased risk of diabetes. Currently, no consensus exists regarding use of hemoglobin A1c for diagnosis of diabetes in children. According to [place] Diabetes Association (ADA) guidelines, hemoglobin A1c <7.0% represents optimal control in non- diabetic patients. Different metrics may apply to specific patient populations. Standards of Medical Care in Diabetes(ADA). ?? Blood 06/19/2023 3:37 PM CDT 06/19/2023 3:39 PM CDT Narrative [facility] - 06/20/2023 2:28 AM CDT FASTING:YES FASTING: YES us Lisbet Finch NP LAB BLOOD ORDERABLES Final Re sult [facility] [address] [place] [address] * (ABNORMAL) Lipid panel (06/19/2023 3:37 PM CDT) [facility] Cholesterol 136 <200 mg/dL [facility] HDL 37(L) > OR = 50 mg/dL [facility] Triglycerides 115 <150 mg/dL [facility] LDL 79 mg/dL (calc) [facility]ie [facility] Comment: Reference range: <100 Desirable range <100 mg/dL for primary prevention; ?? <70 mg/dL for patients with CHD or diabetic patients with > or = 2 CHD risk factors. LDL-C is now calculated using the Jonas-Cathleen calculation, which is a validated novel method providing better accuracy than the Friedewald equation in the estimation of LDL-C. Jonas JAIME et al. KO. 2013;310(19): 4934-9282 (http://education.eHarmony/faq/ENG744) Chol/HDL ratio 3.7 <5.0 (calc) Amelie [facility]yl[facility] Gagnon Non-HDL, (LDL+VLDL) 99 <130 mg/dL (calc) Amelie [facility] Comment: For patients with diabetes plus 1 major ASCVD risk factor, treating to a non-HDL-C goal of <100 mg/dL (LDL-C of <70 mg/dL) is considered a therapeutic option. Blood 06/19/2023 3:37 PM CDT 06/19/2023 3:39 PM CDT Narrative [facility] - 06/20/2023 2:28 AM CDT FASTING:YES FASTING: YES Lisbet Finch ENGLISH LANGUAGE LEARNER TEACHER LAB BLOOD ORDERABLES Final Re sult [facility] [address] [place] [address] * (ABNORMAL) Comprehensive metabolic panel (06/19/2023 3:37 PM CDT) [facility] Glucose 124(H) 65 - 99 mg/dL [facility] Comment: ? Fasting reference interval For someone without known diabetes, a glucose value between 100 and 125 mg/dL is consistent with prediabetes and should be confirmed with a follow-up test. BUN 10 7 - 25 mg/dL [facility] Creatinine 0.87 0.50 - 0.99 mg/dL [facility] eGFR 83 > OR = 60 mL/min/1.7 3m2 [facility] BUN/creat ratio SEE NOTE: 6 - 22 (calc) [facility] Comment: ?? Not Reported: BUN and Creatinine are within ?? reference range. ? Sodium 139 135 - 146 mmol/L [facility] Potassium, pl 3.8 3.5 - 5.3 mmol/L [facility] Chloride 107 98 - 110 mmol/L [facility] CO2 25 20 - 32 mmol/L [facility] Calcium 9.1 8.6 - 10.2 mg/dL [facility] Protein, sr 6.6 6.1 - 8.1 g/dL [facility] Albumin 4.0 3.6 - 5.1 g/dL [facility] GLOBULIN 2.6 1.9 - 3.7 g/dL (calc) [facility] Alb/glob ratio 1.5 1.0 - 2.5 (calc) [facility] Bilirubin, total 0.5 0.2 - 1.2 mg/dL [facility] Alk phos 55 31 - 125 U/L [facility] AST 15 10 - 35 U/L [facility] ALT (SGPT) 20 6 - 29 U/L [facility] Blood 06/19/2023 3:37 PM CDT 06/19/2023 3:39 PM CDT Narrative [facility] - 06/20/2023 2:28 AM CDT FASTING:YES FASTING: YES Lisbet Finch NP LAB BLOOD ORDERABLES Final Re sult [facility] [address] [place] [address] * Screening Mammogram Bilateral W Adam (04/03/2023 [...] age 40, based on guidelines of the [place] [employer] (ACR Practice Parameter for the Performance of Screening and Diagnostic Mammography) and [place] [employer]. For women [...] seen within either breast. us Lisbet Finch ENGLISH LANGUAGE LEARNER TEACHER IMG MAMMO PROCEDURES Final Re sult * Stool DNA - Cologuard (03/13/2023 6:02 PM CDT) Stool DNA - Cologuard Negative Negative [facility] (CLIA #:[id number]) Comment: NEGATIVE TEST RESULT. A negative Cologuard [...] cancer. ??Following a negative Cologuard result, the [place] Cancer Society and U.S. Multi-Society Task Force screening guidelines recommend a Cologuard re-screening interval of 3 years. References: [place] [employer] Guideline for Colorectal Cancer Screening: https://www.cancer.org/cancer/xwanr-saiqlz-pjmxtl/uzswksiht-eijwexhlp-fwwfumq/ac s-rec ommendations.html.; Odilon DK, Rich CR, Arnold GiraldoK, Colorectal Cancer Screening: Recommendations for Physicians and Patients from the U.S. Multi-Society Task Force on Colorectal Cancer Screening , Am J Gastroenterology 2017; 112:2156-3588. TEST DESCRIPTION: Composite algorithmic analysis of stool [...] (Aditi Marin al, N Engl J Med 2014;370(14):8214-9792.) Cologuard may produce a false negative or false positive result (no colorectal cancer or precancerous polyp present at colonoscopy follow up). A negative Cologuard test result does not guarantee the absence of CRC or advanced adenoma (pre-cancer). The current Cologuard screening interval is every 3 years. ([place] [employer] Society and U.S. Multi-Society Task Force). Cologuard performance data in a 10,000 patient pivotal study using colonoscopy as the reference method can be accessed at the following location: www.DigiPath.O2 [place]/results. Additional description of the Cologuard test process, warnings and precautions can be found at www.cologuard.com. Stool 03/13/2023 6:02 PM CDT 03/16/2023 2:28 AM CDT us Lisbet Finch NP LAB BODY FLUIDS AND STOOLS OR DERABLES Final Result [facility] (CLIA #:[id number]) [place] [address] from Last 3 Months or Most Recently Relevant to Health Maintenance Insurance [employer] ACCESS OOS [employer] Care Teams Supervisor Instrument Maintenance Relationship Specialty Start Date End Date Lisbet Finch NP [address] [facility] [address] [place], [place] [id number] PCP - General Internal Medicine 03/06/23
--- OUTSIDE RECORDS SUMMARY | 2024-09-16 20:07 | XMS_ITS | Clinical Summary ---
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 Gender Identity Not on file Sexual Orientation Not on file Plan of Treatment Health Maintenance Due Date Last Done Comments Hepatitis C Virus (HCV) Screening 1977 TdaP Immunization 1977 Hepatitis B Immunization (1 of 3 - 19+ 3-dose series) 1996 Pap Smear 1998 Cervical Cancer Screening (CCS) 2007 HPV/Cotest 2007 Discussion re Starting/Frequency of Mammograms 2017 Colonoscopy 2022 Colorectal Cancer Screening 2022 Influenza Immunization (#1) 2024 SARS-COV-2 Immunization ( season) 2024 02/20/2021, 01/17/2021 Respiratory Syncytial Virus (RSV) Immunization (Adult) (1 - 1-dose 75+ series) 2052 Meningococcal Immunization (ACWY) Aged Out No longer eligible b ased on patient's age to complete this topic Pneumococcal Immunization Combined Aged Out No longer eligible b ased on patient's age to complete this topic Rotavirus Immunization Aged Out No lo nger eligible based on patient's age to complete this topic
[2024-09-16 21:40] VITALS: BP 137/76; PULSE 84; RESP 16; TEMP 36.9; O2SAT 98
== END 2024-09-16 21:41 | disposition home or self-care (01) ==
PROVIDERS: Emergency Provider Physician Assistant
DX: S86.911A Strain of unspecified muscle(s) and tendon(s) at lower leg level, right leg, initial encounter (principal); E11.9 Type 2 diabetes mellitus without complications; I10 Essential (primary) hypertension; F17.210 Nicotine dependence, cigarettes, uncomplicated; M17.11 Unilateral primary osteoarthritis, right knee; X58.XXXA Exposure to other specified factors, initial encounter
CPT/HCPCS: 73564; 96372; 99284; J1885